=== PATIENT | male | born 1965 | race Native Hawaiian/Other Pacific Islander ===

== ENCOUNTER 2021-09-16 09:10 | Outpatient (CLI) | payer OTHER ==
[~2021-09-16 09:10] MED LIST: HYDR10TA47 PO; RISP2TAB2 PO; SEROQUEL100 MG PO; TAMS0.4C PO
== END 2021-09-16 19:19 | disposition home or self-care (01) ==
LOC: CT 09:10
PROVIDERS: ATTEND Internal Medicine
DX: R10.32 Left lower quadrant pain (principal)